=== PATIENT | male | born 1970 | race Caucasian/White ===

== ENCOUNTER 2022-01-15 13:38 | Inpatient (IN) | payer OTHER ==
[~2022-01-15] VITALS: Ht 182.9 cm; Wt 113.6 kg
[2022-01-15] VITALS (10 sets, daily range): BP systolic 132–150; BP diastolic 88–105
--- NOTE | 2022-01-15 13:58 | PDOC1 ---
History and Physical Date of Service: DOS: DATE: 01/15/22 TIME: 13:58 Chief Complaint: Chief Complain: Vomiting blood History of Present Illness: HPI: Patient is a 51-year-old male sent from [facility] today after he presented with some dark-colored stools on Tuesday of bright red blood hematemesis on . This has been ongoing ever since the start of symptoms. Did have an episode of hematemesis this morning and his significant other encouraged him to present to the outside emergency room. While there are due to concerns for GI bleed he was transferred down here. Patient does report having a GI bleed in 2018 that was eventually found to be caused by a stomach ulcer. Was on some sort of proton pump inhibitor after that. He also does endorse ongoing dysphagia. Since he stopped taking his proton pump inhibitors. Does endorse having a hiatal hernia. When I evaluated patient he was resting in bed complaining of abdominal pain feeling very tight. Past Medical/Surgical History: PMH/PSH: Vasectomy Allergies: Allergies: Coded Allergies: codeine (Verified Adverse Reaction, Mild, 01/15/22) lightheadedness Family History: Family History: Various cancers throughout family Social History: Social History: Will have a few cigarettes a day if at all. Denies drug use. Daily alcohol use to the equivalent of 12 beers or a fifth of hard liquor ROS: Review of Systems Review of System Unless noted in HPI 14 point review systems is negative Physical Exam: Physcial Exam: GEN: No apparent distress. Alert and oriented HEENT: Normal cephalic, atraumatic, external auditory canals are patent EYES: Extraocular muscles are intact, pupil are equally round and reactive to light and accommodation MUSCULOSKELETAL: Well developed , well nourished, good range of motion ENDOCRINE: No thyromegaly was palpated LYMPHATICS: No cervical chain or axillary nodes were noted HEMATOPOIETIC: No bruising NECK: Supple, no JVD, no thyromegaly was noted LUNGS: Clear to auscultation in all lung johns without rhonchi or wheezing HEART: RRR, S!, S2 present. Peripheral pulses intact, no obvious murmurs noted ABDOMEN: Noticeable distention, very tense feeling. Not particularly tender maybe some caput medusa EXTREMITIES: Without clubbing, cyanosis, or edema. Pedal pulses intact. Negative Homans sign NEUROLOGIC: Normal speech and tone. A&O x 3, moves all extremities, no obvious focal deficits PSYCHIATRIC: Normal affect, normal mood. Stable SKIN: No ulcerations or rashes, good skin turgor, no jaundice VASCULAR: Good capillary refill, neurovascular bundle appears to be intact Assessment/Plan Assessment/Plan Hematemesis, alcohol abuse, ascites, cirrhosis - 2-day history of bright red blood per rectum 1 day history hematemesis. Hemodynamically stable -Start IV Protonix. Make n.p.o. -GI consultation -Given severity of alcohol abuse will start CIWA protocol -Can perform paracentesis over weekend at bedside if deemed necessary -IR evaluation for TIPS -Home meds as indicated -hold off dvt ppx for now Justifications for Admission Other Justification SANDY KERN MD Jan 15, 2022 13:58
[2022-01-15] MEDS ORDERED: ONDANSETRON PF 4 MG/2 ML VIAL. IVP PRN (14:00)
[2022-01-15] MEDS ORDERED: ELECTROLYTE (NON-ICU) PROTOCOL. MC PRN (14:00)
[2022-01-15] MEDS ORDERED: MORPHINE SULFATE 2 MG/ML INJ. IV PRN (14:00)
[2022-01-15] MEDS ORDERED: CALCIUM CARBONATE 500 MG TAB.CHEW PO PRN (14:00)
--- NOTE | 2022-01-15 14:52 | PDOC2 ---
GI CONSULT Date of Service: DATE: 01/15/22 TIME: 14:36 Reason For Consult: GI bleed in alcoholic HPI: HPI: 51 y/o male sent from [facility]. First saw dark tarry stool on on Tue and first vomited red blood on morning. Last emesis (still bloody) occurred at 8:00 a.m. today before his girlfriend suggested they go to the ER, and last stool occurred today around 8:45 a.m. H/o GERD - previously on Rx medication, now OTC. Asked about dysphagia - he says he must take small bites because he has a hiatal hernia. No chronic issues w/ n/v. No diarrhea, constipation, or hematochezia. Previous GI bleeding in 2018 - reports EGD in [place], [place] showed stomach ulcer. Does not recall varices mentioned. No previous colonoscopy. No GB, liver, or pancreas history. Heavy alcohol use - last drink 01/13 at lunch. Has not eaten today. Outside records: WBC 10.5, Hgb 13, MCV 109, plt 235, BUN 17, Cr 0.6, bili 3.5, AST 84, ALT 33, Alk Phos 311, INR 1.1, amylase 24, troponin 0.01. On CT: diffuse low-density colonic-wall thickening - suspect portal hypertensive colopathy, small amount of high density material within dependent stomach (food vs blood), cirrhosis, and large volume ascites. PMH: PMH: HTN vasectomy, umbilical hernia repair w/ mesh, leg fracture repair w/ hardware FH: Family History: Cancer (esophgeal - father, also prostate and skin in other relatives), Other (GERD - father, mother, brother) Social History: Smoke: <1 pack per day ALCOHOL: heavy Drugs: None ROS: GEN: Denies fevers, chills, sweats HEENT: Denies blurred vision, sore throat CV: Denies chest pain RESP: Denies shortness of air, cough GI: Per HPI : Denies hematuria, dysuria ENDO: Denies weight changes NEURO: Denies confusion, dizziness MSK: Denies weakness, joint pain/swelling SKIN: Denies jaundice, pruritus Vitals: Vitals: Vital Signs Date Time Temp Pulse Resp B/P (MAP) Pulse Ox O2 Delivery O2 Flow Rate FiO2 01/15/22 13:59 98.7 101 20 136/105 (115) 100 Room Air 98.7 Labs: Labs: see HPI Allergies: Coded Allergies: codeine (Verified Adverse Reaction, Mild, 01/15/22) lightheadedness Imaging: Imaging: see HPI PE: GEN: NAD HEENT: Atraumatic, PERRL LUNGS: CTAB HEART: borderline tachycardic ABD: large - distended w/ ascites EXTREMITY: No edema SKIN: No rashes, no jaundice NEURO/PSYCH: A & O 3, very calm A/P: A/P: Hematemesis, melena - began 01/13/22 Macrocytosis, abnormal LFTs H/o GERD, PUD, and hiatal hernia CRC screen - none Cirrhosis, ascites Alcohol misuse FH esophageal cancer -- EGD this afternoon - have discussed w/ nursing supervisor customer services. Checking rapid COVID per protocol - called to floor. Agree w/ IV PPI, checking viral Hep panel, abd US, paracentesis. Withdrawal precautions per primary. LENARD HERNANDEZ Jan 15, 2022 14:52
[2022-01-15] MEDS: MULTIVIT INFUSN,ADULT 4,VIT K 10 ML, THIAMINE INJ 100 MG, FOLIC ACID INJ 1 MG in IV NOR... IV SCH (15:13)
[2022-01-15] MEDS: cefTRIAXone IV Push 1 GM VIAL. IVP SCH ×2 (15:13→17:35)
[2022-01-15] MEDS ORDERED: PANTOPRAZOLE IV PUSH 40 MG VIAL. IVP SCH (15:30)
[2022-01-15] MEDS ORDERED: IV NORMAL SALINE 1000ML BAG 1,000 ML IV SCH (15:30)
[2022-01-15] MEDS ORDERED: PROPOFOL 10 MG/ML (20ML) VIAL. IV ONE (15:56)
[2022-01-15] MEDS ORDERED: LIDOCAINE 2% PF 5 ML VIAL. ONE (15:57)
--- NOTE | 2022-01-15 16:22 | PDOC4 ---
PROCEDURE Procedure EGD Indication: UGI bleeding, subacute Meds: per anesthesia. Findings: E--No real varices; some small prominent veins but can flatten with air insufflation. Erosion distally from GERD. No apparent Malllory-Serra lesion. G--Small HH, but within what seemed to be gastric varix with a red spot. Not treatable by banding or injection here. Most of greater curve obscured by blood/clot. Distally normal lesser curve, antrum and pylorus. D--Normal to second portion; no blood here. Anastasiya. well. IMP: GERD HH Gastric varix with stigmata of recent hemorrhage. Not endoscopically treatable here. REC: Continue PPI drip. Add octreotide. Would have IR see re: possiblity of TIPS or BRTTO. NPO save ice chips. Monitor hemoglobin, INR, etc. Transfuse prn. BRYNN HERNANDEZ MD Jan 15, 2022 16:22
[2022-01-15] MEDS: OCTREOTIDE 500 MCG in IV NORMAL SALINE 100ML 100 ML IV PRN (17:36)
[2022-01-15] MEDS: PANTOPRAZOLE SODIUM IV DRIP 80 MG in IV NORMAL SALINE 100ML 100 ML IV SCH (17:37)
[2022-01-15] MEDS ORDERED: PHENOL ORAL SPRAY 177ML BOTTLE. PO PRN (21:00)
[2022-01-15] MEDS ORDERED: BENZOCAINE/MENTHOL LOZENGE. PO PRN (21:00)
[2022-01-15] MEDS: SENNOSIDES/DOCUSATE 8.6/50MG TABLET. PO SCH (21:00)
[2022-01-15 22:39] LABS: BILIRUBIN,URINE SMALL (NEG); CLARITY,URINE CLEAR; COLOR,URINE YELLOW; PROTEIN,URINE NEGATIVE (NEG-TRACE)
[2022-01-15 22:40] LABS: BACTERIA,URINE 0 /HPF (0-FEW); NITRITE,URINE NEGATIVE (NEG); RBC,URINE 0 /HPF (0-2); WBC,URINE 0 /HPF (0-4)
[2022-01-15 23:01] LABS: BASO # 0.1 x10^3/uL (0.0-0.2); BASO % 1 % (0-3); EOS % 0 % (0-3); HEMATOCRIT 30.8 % (39.0-53.0); HEMOGLOBIN 10.2 g/dL (13.0-17.5); LYMPH % 14 % (24-48); MEAN CORPUSCULAR HEMOGLOBIN 36 pg (25-35); MEAN CORPUSCULAR HGB CONC 33 g/dL (31-37); MEAN CORPUSCULAR VOLUME 110 fL (79-100); MONO # 0.7 x10^3/uL (0.0-1.1); MONO % 9 % (0-9); NEUT # 5.3 x10^3/uL (1.8-7.7); NEUT % 76 % (31-73); PLATELET COUNT 191 x10^3/uL (140-400); RED CELL DISTRIBUTION WIDTH 14.4 % (11.5-14.5); WHITE BLOOD COUNT 7.1 x10^3/uL (4.0-11.0)
[2022-01-15 23:11] LABS: PROTHROMBIN TIME PATIENT 14.9 SEC (11.7-14.0)
[2022-01-15 23:25] LABS: ALBUMIN 2.4 g/dL (3.4-5.0); ALBUMIN/GLOBULIN RATIO 0.5 (1.0-1.7); CALCIUM 8.3 mg/dL (8.5-10.1); CREATININE 0.9 mg/dL (0.7-1.3); POTASSIUM 3.4 mmol/L (3.5-5.1); TOTAL BILIRUBIN 2.7 mg/dL (0.2-1.0); TOTAL PROTEIN 7.1 g/dL (6.4-8.2)
--- NOTE | 2022-01-15 23:37 | RAD ---
EXAM: ULTRASOUND ABDOMEN LIMITED CLINICAL HISTORY: Right upper quadrant pain, GI bleeding COMPARISON: No prior Findings: The pancreas, aorta and most of the IVC are not visualized bowel gas shadowing. There is free fluid in the right upper quadrant. Gallbladder sludge and tiny gravel-type stones. Gallbladder wall thickening measuring 4.4 mm. No sono graphic Richard sign. Liver cirrhosis with surface irregularity and heterogeneous increased liver echotexture. No liver mas s documented. Hepatomegaly 18.8 cm which is abnormally elongated. Normal length is less than 16 cm. T here is patent hepatopetal portal vein blood flow. No intrahepatic biliary ductal dilation evident. T he common bile duct obscured by bowel gas shadowing. Right renal length 13.6 cm. No mass or hydronephrosis of the right kidney evident. Spleen and left kidney were not evaluated. IMPRESSION: 1. Ascites at the right upper quadrant abdomen. 2. Liver cirrhosis. 3. Gallbladder sludge and tiny gravel-type calculi. The gallbladder wall is mildly thickened measurin g 4.4 mm, which can be commonly observed in the setting of ascites and liver disease. Inflammatory th ickening from cholecystitis would also be a possibility. Electronically signed by: Roney Wright MD (01/15/2022 11:34 PM) [facility]
[2022-01-15 23:43] LABS: PLT ESTIMATE ADEQUATE (ADEQUATE)
[2022-01-16] MEDS: PANTOPRAZOLE SODIUM IV DRIP 80 MG in IV NORMAL SALINE 100ML 100 ML IV SCH ×3 (01:28→23:09)
[2022-01-16] MEDS: OCTREOTIDE 500 MCG in IV NORMAL SALINE 100ML 100 ML IV PRN ×2 (01:31→23:10)
[2022-01-16 02:19] VITALS: BP 136/94
[2022-01-16 02:57] LABS: HEMATOCRIT 27.2 % (39.0-53.0); RED BLOOD COUNT 2.46 x10^6/uL (4.30-5.70); RED CELL DISTRIBUTION WIDTH 14.4 % (11.5-14.5); WHITE BLOOD COUNT 6.1 x10^3/uL (4.0-11.0)
[2022-01-16 03:07] LABS: CREATININE 0.8 mg/dL (0.7-1.3); GFR 101.9; POTASSIUM 3.5 mmol/L (3.5-5.1)
[2022-01-16 07:00] VITALS: BP 130/88
[2022-01-16 07:29] LABS: PROTHROMBIN TIME PATIENT 15.4 SEC (11.7-14.0)
[2022-01-16] MEDS: MULTIVIT INFUSN,ADULT 4,VIT K 10 ML, THIAMINE INJ 100 MG, FOLIC ACID INJ 1 MG in IV NOR... IV SCH (08:29)
[2022-01-16] MEDS: SENNOSIDES/DOCUSATE 8.6/50MG TABLET. PO SCH ×2 (08:29→19:35)
--- NOTE | 2022-01-16 10:08 | PDOC ---
G I PROGRESS NOTE Reason for Follow-up Acute blood loss anemia Subjective Tolerating PO without further bleeding Physical Exam Lungs clear CV S1 S2 ABD +BS, soft, nontender Review of Relevant I have reviewed the following items emily (where applicable) has been applied. Labs Laboratory Tests Test 01/15/22 15:40 01/15/22 21:57 01/15/22 22:30 01/16/22 02:40 POC SARS CoV-2 Antigen Negative (NEGATIVE) Urine Collection Type Unknown Urine Color Yellow Urine Clarity Clear Urine pH 6.0 (<5.0-8.0) Urine Specific [place] 1.010 (1.000-1.030) Urine Protein Negative mg/dL (NEG-TRACE) Urine Glucose (UA) Negative mg/dL (NEG) Urine Ketones (Stick) Negative mg/dL (NEG) Urine Blood Negative (NEG) Urine Nitrite Negative (NEG) Urine Bilirubin Small (NEG) Urine Urobilinogen Dipstick 1.0 mg/dL (0.2 mg/dL) Urine Leukocyte Esterase Negative (NEG) Urine RBC 0 /HPF (0-2) Urine WBC 0 /HPF (0-4) Urine Squamous Epithelial Cells Occ /LPF Urine Bacteria 0 /HPF (0-FEW) White Blood Count 7.1 x10^3/uL (4.0-11.0) 6.1 x10^3/uL (4.0-11.0) Red Blood Count 2.80 x10^6/uL (4.30-5.70) 2.46 x10^6/uL (4.30-5.70) Hemoglobin 10.2 g/dL (13.0-17.5) 9.0 g/dL (13.0-17.5) Hematocrit 30.8 % (39.0-53.0) 27.2 % (39.0-53.0) Mean Corpuscular Volume 110 fL (79-100) 110 fL (79-100) Mean Corpuscular Hemoglobin 36 pg (25-35) 37 pg (25-35) Mean Corpuscular Hemoglobin Concent 33 g/dL (31-37) 33 g/dL (31-37) Red Cell Distribution Width 14.4 % (11.5-14.5) 14.4 % (11.5-14.5) Platelet Count 191 x10^3/uL (140-400) 148 x10^3/uL (140-400) Neutrophils (%) (Auto) 76 % (31-73) Lymphocytes (%) (Auto) 14 % (24-48) Monocytes (%) (Auto) 9 % (0-9) Eosinophils (%) (Auto) 0 % (0-3) Basophils (%) (Auto) 1 % (0-3) Neutrophils # (Auto) 5.3 x10^3/uL (1.8-7.7) Lymphocytes # (Auto) 1.0 x10^3/uL (1.0-4.8) Monocytes # (Auto) 0.7 x10^3/uL (0.0-1.1) Eosinophils # (Auto) 0.0 x10^3/uL (0.0-0.7) Basophils # (Auto) 0.1 x10^3/uL (0.0-0.2) Platelet Estimate Adequate (ADEQUATE) Macrocytosis Mod Prothrombin Time 14.9 SEC (11.7-14.0) Prothromb Time International Ratio 1.2 (0.8-1.1) Activated Partial Thromboplast Time 30 SEC (24-38) Sodium Level 142 mmol/L (136-145) 145 mmol/L (136-145) Potassium Level 3.4 mmol/L (3.5-5.1) 3.5 mmol/L (3.5-5.1) Chloride Level 106 mmol/L (98-107) 109 mmol/L (98-107) Carbon Dioxide Level 26 mmol/L (21-32) 26 mmol/L (21-32) Anion Gap 10 (6-14) 10 (6-14) Blood Urea Nitrogen 19 mg/dL (8-26) 19 mg/dL (8-26) Creatinine 0.9 mg/dL (0.7-1.3) 0.8 mg/dL (0.7-1.3) Estimated GFR (Cockcroft-Gault) 89.0 101.9 BUN/Creatinine Ratio 21 (6-20) Glucose Level 133 mg/dL (70-99) 156 mg/dL (70-99) Lactic Acid Level 2.6 mmol/L (0.4-2.0) 1.8 mmol/L (0.4-2.0) Calcium Level 8.3 mg/dL (8.5-10.1) 8.0 mg/dL (8.5-10.1) Iron Level 181 ug/dL (65-175) Total Iron Binding Capacity 174 ug/dL (250-450) Iron Saturation % (15-34) Total Bilirubin 2.7 mg/dL (0.2-1.0) Aspartate Amino Transf (AST/SGOT) 67 U/L (15-37) Alanine Aminotransferase (ALT/SGPT) 30 U/L (16-63) Alkaline Phosphatase 298 U/L (46-116) Ammonia 52 mcmol/L (11-34) Total Protein 7.1 g/dL (6.4-8.2) Albumin 2.4 g/dL (3.4-5.0) Albumin/Globulin Ratio 0.5 (1.0-1.7) Lipase 31 U/L (73-393) Thyroid Stimulating Hormone (TSH) 1.920 uIU/mL (0.358-3.74) Hepatitis A IgM Antibody Nonreactive (Nonreactive) Hepatitis B Surface Antigen Nonreactive (Nonreactive) Hepatitis B Core IgM Antibody Nonreactive (Nonreactive) Hepatitis C IgG Antibody Nonreactive (Nonreactive) Test 01/16/22 06:40 Prothrombin Time 15.4 SEC (11.7-14.0) Prothromb Time International Ratio 1.3 (0.8-1.1) Laboratory Tests Test 01/15/22 15:40 01/15/22 21:57 01/15/22 22:30 01/16/22 02:40 POC SARS CoV-2 Antigen Negative (NEGATIVE) Urine Collection Type Unknown Urine Color Yellow Urine Clarity Clear Urine pH 6.0 (<5.0-8.0) Urine Specific [place] 1.010 (1.000-1.030) Urine Protein Negative mg/dL (NEG-TRACE) Urine Glucose (UA) Negative mg/dL (NEG) Urine Ketones (Stick) Negative mg/dL (NEG) Urine Blood Negative (NEG) Urine Nitrite Negative (NEG) Urine Bilirubin Small (NEG) Urine Urobilinogen Dipstick 1.0 mg/dL (0.2 mg/dL) Urine Leukocyte Esterase Negative (NEG) Urine RBC 0 /HPF (0-2) Urine WBC 0 /HPF (0-4) Urine Squamous Epithelial Cells Occ /LPF Urine Bacteria 0 /HPF (0-FEW) White Blood Count 7.1 x10^3/uL (4.0-11.0) 6.1 x10^3/uL (4.0-11.0) Red Blood Count 2.80 x10^6/uL (4.30-5.70) 2.46 x10^6/uL (4.30-5.70) Hemoglobin 10.2 g/dL (13.0-17.5) 9.0 g/dL (13.0-17.5) Hematocrit 30.8 % (39.0-53.0) 27.2 % (39.0-53.0) Mean Corpuscular Volume 110 fL (79-100) 110 fL (79-100) Mean Corpuscular Hemoglobin 36 pg (25-35) 37 pg (25-35) Mean Corpuscular Hemoglobin Concent 33 g/dL (31-37) 33 g/dL (31-37) Red Cell Distribution Width 14.4 % (11.5-14.5) 14.4 % (11.5-14.5) Platelet Count 191 x10^3/uL (140-400) 148 x10^3/uL (140-400) Neutrophils (%) (Auto) 76 % (31-73) Lymphocytes (%) (Auto) 14 % (24-48) Monocytes (%) (Auto) 9 % (0-9) Eosinophils (%) (Auto) 0 % (0-3) Basophils (%) (Auto) 1 % (0-3) Neutrophils # (Auto) 5.3 x10^3/uL (1.8-7.7) Lymphocytes # (Auto) 1.0 x10^3/uL (1.0-4.8) Monocytes # (Auto) 0.7 x10^3/uL (0.0-1.1) Eosinophils # (Auto) 0.0 x10^3/uL (0.0-0.7) Basophils # (Auto) 0.1 x10^3/uL (0.0-0.2) Platelet Estimate Adequate (ADEQUATE) Macrocytosis Mod Prothrombin Time 14.9 SEC (11.7-14.0) Prothromb Time International Ratio 1.2 (0.8-1.1) Activated Partial Thromboplast Time 30 SEC (24-38) Sodium Level 142 mmol/L (136-145) 145 mmol/L (136-145) Potassium Level 3.4 mmol/L (3.5-5.1) 3.5 mmol/L (3.5-5.1) Chloride Level 106 mmol/L (98-107) 109 mmol/L (98-107) Carbon Dioxide Level 26 mmol/L (21-32) 26 mmol/L (21-32) Anion Gap 10 (6-14) 10 (6-14) Blood Urea Nitrogen 19 mg/dL (8-26) 19 mg/dL (8-26) Creatinine 0.9 mg/dL (0.7-1.3) 0.8 mg/dL (0.7-1.3) Estimated GFR (Cockcroft-Gault) 89.0 101.9 BUN/Creatinine Ratio 21 (6-20) Glucose Level 133 mg/dL (70-99) 156 mg/dL (70-99) Lactic Acid Level 2.6 mmol/L (0.4-2.0) 1.8 mmol/L (0.4-2.0) Calcium Level 8.3 mg/dL (8.5-10.1) 8.0 mg/dL (8.5-10.1) Iron Level 181 ug/dL (65-175) Total Iron Binding Capacity 174 ug/dL (250-450) Iron Saturation % (15-34) Total Bilirubin 2.7 mg/dL (0.2-1.0) Aspartate Amino Transf (AST/SGOT) 67 U/L (15-37) Alanine Aminotransferase (ALT/SGPT) 30 U/L (16-63) Alkaline Phosphatase 298 U/L (46-116) Ammonia 52 mcmol/L (11-34) Total Protein 7.1 g/dL (6.4-8.2) Albumin 2.4 g/dL (3.4-5.0) Albumin/Globulin Ratio 0.5 (1.0-1.7) Lipase 31 U/L (73-393) Thyroid Stimulating Hormone (TSH) 1.920 uIU/mL (0.358-3.74) Hepatitis A IgM Antibody Nonreactive (Nonreactive) Hepatitis B Surface Antigen Nonreactive (Nonreactive) Hepatitis B Core IgM Antibody Nonreactive (Nonreactive) Hepatitis C IgG Antibody Nonreactive (Nonreactive) Test 01/16/22 06:40 Prothrombin Time 15.4 SEC (11.7-14.0) Prothromb Time International Ratio 1.3 (0.8-1.1) Medications Current Medications Pantoprazole Sodium (PROTONIX VIAL for IV PUSH) 40 mg DAILYAC IVP ; Start 01/15/22 at 15:30; Stop 01/15/22 at 16:40; Status DC Sodium Chloride 1,000 ml @ 100 mls/hr Q10H IV Last administered on 01/15/22at 15:13; Start 01/15/22 at 15:30; Stop 01/16/22 at 01:29; Status DC Ondansetron HCl (Zofran) 4 mg PRN Q6HRS PRN IVP NAUSEA/VOMITING Last administered on 01/15/22at 20:30; Start 01/15/22 at 14:00 Calcium Carbonate/ Glycine (Tums) 500 mg PRN Q3HRS PRN PO UPSET STOMACH; Start 01/15/22 at 14:00 Info (Non-Icu Electrolyte Protocol) 1 ea PRN DAILY PRN MC SEE COMMENTS; Start 01/15/22 at 14:00 Morphine Sulfate (Morphine Sulfate) 1 mg PRN Q1HR PRN IV PAIN; Start 01/15/22 at 14:00 Senna/Docusate Sodium (Senna Plus) 1 tab BID PO ; Start 01/15/22 at 21:00 Ceftriaxone Sodium (Rocephin) 1 gm Q24H IVP Last administered on 01/15/22at 17:35; Start 01/15/22 at 15:00 Multivitamins 10 ml/Thiamine HCl 100 mg/Folic Acid 1 mg/Sodium Chloride 1,011.2 ml @ 100 mls/ hr DAILY IV ; Start 01/15/22 at 15:30; Stop 01/19/22 at 19:07 Multivitamins (Thera M Plus) 1 tab DAILY PO ; Start 01/20/22 at 09:00 Folic Acid (Folic Acid) 1 mg DAILY PO ; Start 01/20/22 at 09:00 Thiamine Mononitrate (Vitamin B-1) 100 mg DAILY PO ; Start 01/20/22 at 09:00 Lorazepam (Ativan Inj) 2 mg PRN Q1HR PRN IV For CIWA 8-14; Start 01/15/22 at 14:00 Lorazepam (Ativan Inj) 4 mg PRN Q1HR PRN IV For CIWA 15 or greater; Start 01/15/22 at 14:00 Propofol (Diprivan) 200 mg STK-MED ONCE IV ; Start 01/15/22 at 15:56; Stop 01/15/22 at 15:57; Status DC Lidocaine HCl (Lidocaine Pf 2% Vial) 5 ml STK-MED ONCE .ROUTE ; Start 01/15/22 at 15:57; Stop 01/15/22 at 15:57; Status DC Pantoprazole Sodium 80 mg/ Sodium Chloride 100 ml @ 10 mls/hr Q10H IV Last administered on 01/16/22at 01:28; Start 01/15/22 at 17:00 Octreotide Acetate 500 mcg/ Sodium Chloride 101 ml @ 5.05 mls/hr CONT PRN IV SEE I/O RECORD Last administered on 01/16/22at 01:31; Start 01/15/22 at 17:00 Throat Lozenges (Cepacol Sore Throat Lozenge) 1 olinda PRN Q2HRS PRN PO SORE THROAT Last administered on 01/15/22at 21:47; Start 01/15/22 at 21:00 Phenol (Chloraseptic) 1 spray PRN Q2HR PRN PO SORE THROAT Last administered on 01/15/22at 21:46; Start 01/15/22 at 21:00 Vitals/I & O Vital Sign - Last 24 Hours 01/15/22 01/15/22 01/15/22 01/15/22 13:59 14:30 15:00 15:50 Temp 98.7 99.0 98.7 99.0 Pulse 101 103 105 Resp 20 20 20 B/P (MAP) 136/105 (115) 148/104 (119) Pulse Ox 100 95 98 O2 Delivery Room Air Room Air Room Air Nasal Cannula O2 Flow Rate 4.0 01/15/22 01/15/22 01/15/22 01/15/22 16:15 16:30 16:45 17:15 Temp 98.7 98.7 97.8 98.5 98.7 98.7 97.8 98.5 Pulse 85 85 88 91 Resp 20 20 20 18 B/P (MAP) 121/79 129/87 128/79 149/96 (113) Pulse Ox 100 100 99 99 O2 Delivery Nasal Cannula Room Air Room Air Room Air O2 Flow Rate 3.0 01/15/22 01/15/22 01/15/22 01/15/22 17:30 17:45 18:00 18:15 Pulse 100 95 94 90 Resp 20 18 B/P (MAP) 148/96 (113) 149/93 (111) 145/95 (112) 150/94 (112) Pulse Ox 98 95 98 93 O2 Delivery Room Air Room Air Room Air Room Air 01/15/22 01/15/22 01/15/22 01/16/22 18:45 19:00 23:00 02:19 Temp 98.7 98.5 98.4 98.7 98.5 98.4 Pulse 91 95 90 83 Resp 20 18 16 B/P (MAP) 138/92 (107) 144/91 (108) 132/88 (103) 136/94 (108) Pulse Ox 94 98 94 96 O2 Delivery Room Air Room Air Room Air Room Air 01/16/22 01/16/22 07:00 08:05 Temp 98.1 98.1 Pulse 84 Resp 18 B/P (MAP) 130/88 (102) Pulse Ox 99 O2 Delivery Room Air Room Air Intake and Output 01/15/22 01/15/22 01/16/22 15:00 23:00 07:00 Intake Total 1493 ml Output Total 200 ml Balance -200 ml 1493 ml Problem List Acute blood loss anemia- with underlying liver disease, possible TIPS if further bleeding, advance diet and reassess in am Justicifation of Admission Dx: Justifications for Admission: Justification of Admission Dx: Yes KASHIF MAY MD Jan 16, 2022 10:08
[2022-01-16 11:00] VITALS: BP 142/98
--- NOTE | 2022-01-16 11:10 | PDOC ---
[employer] PROGRESS NOTE Date of Service DOS: DATE: 01/16/22 TIME: 11:07 Chief Complaint Chief Complaint Assessment/Plan Hematemesis, alcohol abuse, ascites, cirrhosis status post EGD revealing gastric varices with red spot and hiatal hernia Advance diet as tolerated - 2-day history of bright red blood per rectum 1 day history hematemesis. Hemodynamically stable -Continue IV octreotide drip and PPI. -GI consultation -Given severity of alcohol abuse will start CIWA protocol -Can perform paracentesis over weekend at bedside if deemed necessary -IR evaluation for TIPS -Home meds as indicated -hold off dvt ppx for now History of Present Illness History of Present Illness 51-year-old male sent from [facility] today after he presented with some dark- colored stools on Tuesday of bright red blood hematemesis on . This has been ongoing ever since the start of symptoms. Did have an episode of h ematemesis this morning and his significant other encouraged him to present to the outside emergency room. While there are due to concerns for GI bleed he was transferred down here. Patient does report having a GI bleed in 2018 that was eventually found to be caused by a stomach ulcer. Was on some sort of proton pump inhibitor after that. He also does endorse ongoing dysphagia. Since he stopped taking his proton pump inhibitors. Does endorse having a hiatal hernia. When I evaluated patient he was resting in bed complaining of abdominal pain feeling very tight. 01/16/22 No acute events overnight. Patient seen examined bedside. Status post EGD showing varices. IR consulted for possible TIPS versus BRTTO. Will trend hemoglobin at this time. Hemoglobin today at 9.0 advance diet per GI. Abdominal pain is improved. No more hematemesis. No signs of withdrawal. Patient's chart, labs, images were reviewed and discussed with RN Vitals/I&O Vitals/I&O: Vital Signs Date Time Temp Pulse Resp B/P (MAP) Pulse Ox O2 Delivery O2 Flow Rate FiO2 01/16/22 08:05 Room Air 01/16/22 07:00 98.1 84 18 130/88 (102) 99 98.1 01/15/22 16:15 3.0 I & O 01/15/22 01/15/22 01/16/22 15:00 23:00 07:00 Intake Total 1493 ml Output Total 200 ml Balance -200 ml 1493 ml Physical Exam General: Alert, Oriented X3, Cooperative Heart: Regular rate Lungs: Clear Abdomen: Normal bowel sounds Extremities: No clubbing Skin: No rashes Labs Labs: Laboratory Tests Test 01/15/22 15:40 01/15/22 21:57 01/15/22 22:30 01/16/22 02:40 POC SARS CoV-2 Antigen Negative (NEGATIVE) Urine Collection Type Unknown Urine Color Yellow Urine Clarity Clear Urine pH 6.0 (<5.0-8.0) Urine Specific [place] 1.010 (1.000-1.030) Urine Protein Negative mg/dL (NEG-TRACE) Urine Glucose (UA) Negative mg/dL (NEG) Urine Ketones (Stick) Negative mg/dL (NEG) Urine Blood Negative (NEG) Urine Nitrite Negative (NEG) Urine Bilirubin Small (NEG) Urine Urobilinogen Dipstick 1.0 mg/dL (0.2 mg/dL) Urine Leukocyte Esterase Negative (NEG) Urine RBC 0 /HPF (0-2) Urine WBC 0 /HPF (0-4) Urine Squamous Epithelial Cells Occ /LPF Urine Bacteria 0 /HPF (0-FEW) White Blood Count 7.1 x10^3/uL (4.0-11.0) 6.1 x10^3/uL (4.0-11.0) Red Blood Count 2.80 x10^6/uL (4.30-5.70) 2.46 x10^6/uL (4.30-5.70) Hemoglobin 10.2 g/dL (13.0-17.5) 9.0 g/dL (13.0-17.5) Hematocrit 30.8 % (39.0-53.0) 27.2 % (39.0-53.0) Mean Corpuscular Volume 110 fL (79-100) 110 fL (79-100) Mean Corpuscular Hemoglobin 36 pg (25-35) 37 pg (25-35) Mean Corpuscular Hemoglobin Concent 33 g/dL (31-37) 33 g/dL (31-37) Red Cell Distribution Width 14.4 % (11.5-14.5) 14.4 % (11.5-14.5) Platelet Count 191 x10^3/uL (140-400) 148 x10^3/uL (140-400) Neutrophils (%) (Auto) 76 % (31-73) Lymphocytes (%) (Auto) 14 % (24-48) Monocytes (%) (Auto) 9 % (0-9) Eosinophils (%) (Auto) 0 % (0-3) Basophils (%) (Auto) 1 % (0-3) Neutrophils # (Auto) 5.3 x10^3/uL (1.8-7.7) Lymphocytes # (Auto) 1.0 x10^3/uL (1.0-4.8) Monocytes # (Auto) 0.7 x10^3/uL (0.0-1.1) Eosinophils # (Auto) 0.0 x10^3/uL (0.0-0.7) Basophils # (Auto) 0.1 x10^3/uL (0.0-0.2) Platelet Estimate Adequate (ADEQUATE) Macrocytosis Mod Prothrombin Time 14.9 SEC (11.7-14.0) Prothromb Time International Ratio 1.2 (0.8-1.1) Activated Partial Thromboplast Time 30 SEC (24-38) Sodium Level 142 mmol/L (136-145) 145 mmol/L (136-145) Potassium Level 3.4 mmol/L (3.5-5.1) 3.5 mmol/L (3.5-5.1) Chloride Level 106 mmol/L (98-107) 109 mmol/L (98-107) Carbon Dioxide Level 26 mmol/L (21-32) 26 mmol/L (21-32) Anion Gap 10 (6-14) 10 (6-14) Blood Urea Nitrogen 19 mg/dL (8-26) 19 mg/dL (8-26) Creatinine 0.9 mg/dL (0.7-1.3) 0.8 mg/dL (0.7-1.3) Estimated GFR (Cockcroft-Gault) 89.0 101.9 BUN/Creatinine Ratio 21 (6-20) Glucose Level 133 mg/dL (70-99) 156 mg/dL (70-99) Lactic Acid Level 2.6 mmol/L (0.4-2.0) 1.8 mmol/L (0.4-2.0) Calcium Level 8.3 mg/dL (8.5-10.1) 8.0 mg/dL (8.5-10.1) Iron Level 181 ug/dL (65-175) Total Iron Binding Capacity 174 ug/dL (250-450) Iron Saturation % (15-34) Total Bilirubin 2.7 mg/dL (0.2-1.0) Aspartate Amino Transf (AST/SGOT) 67 U/L (15-37) Alanine Aminotransferase (ALT/SGPT) 30 U/L (16-63) Alkaline Phosphatase 298 U/L (46-116) Ammonia 52 mcmol/L (11-34) Total Protein 7.1 g/dL (6.4-8.2) Albumin 2.4 g/dL (3.4-5.0) Albumin/Globulin Ratio 0.5 (1.0-1.7) Lipase 31 U/L (73-393) Thyroid Stimulating Hormone (TSH) 1.920 uIU/mL (0.358-3.74) Hepatitis A IgM Antibody Nonreactive (Nonreactive) Hepatitis B Surface Antigen Nonreactive (Nonreactive) Hepatitis B Core IgM Antibody Nonreactive (Nonreactive) Hepatitis C IgG Antibody Nonreactive (Nonreactive) Test 01/16/22 06:40 Prothrombin Time 15.4 SEC (11.7-14.0) Prothromb Time International Ratio 1.3 (0.8-1.1) Comment Review of Relevant I have reviewed the following items emily (where applicable) has been applied. Medications: Current Medications Medications (Trade) Dose Ordered Sig/Nadeen Route PRN Reason Start Time Stop Time Status Last Admin Dose Admin Sodium Chloride 1,000 ml @ 100 mls/hr Q10H IV 01/15/22 15:30 01/16/22 01:29 DC 01/15/22 15:13 Ondansetron HCl (Zofran) 4 mg PRN Q6HRS PRN IVP NAUSEA/VOMITING 01/15/22 14:00 01/15/22 20:30 Ceftriaxone Sodium (Rocephin) 1 gm Q24H IVP 01/15/22 15:00 01/15/22 17:35 Pantoprazole Sodium 80 mg/ Sodium Chloride 100 ml @ 10 mls/hr Q10H IV 01/15/22 17:00 01/16/22 01:28 Octreotide Acetate 500 mcg/ Sodium Chloride 101 ml @ 5.05 mls/hr CONT PRN IV SEE I/O RECORD 01/15/22 17:00 01/16/22 01:31 Throat Lozenges (Cepacol Sore Throat Lozenge) 1 olinda PRN Q2HRS PRN PO SORE THROAT 01/15/22 21:00 01/15/22 21:47 Phenol (Chloraseptic) 1 spray PRN Q2HR PRN PO SORE THROAT 01/15/22 21:00 01/15/22 21:46 Justifications for Admission Other Justification DELMY LOMAS MD Jan 16, 2022 11:10
[2022-01-16 15:00] VITALS: BP 153/100
[2022-01-16] MEDS: cefTRIAXone IV Push 1 GM VIAL. IVP SCH (15:36)
[2022-01-16 19:00] VITALS: BP 138/69
[2022-01-16] MEDS: ZOLPIDEM 5 MG TABLET. PO PRN (20:44)
[2022-01-16 23:00] VITALS: BP 135/72
[2022-01-17 02:37] VITALS: BP 130/89
[2022-01-17 07:00] VITALS: BP 131/88
[2022-01-17 07:25] LABS: BASO # 0.1 x10^3/uL (0.0-0.2); BASO % 1 % (0-3); EOS # 0.1 x10^3/uL (0.0-0.7); EOS % 2 % (0-3); HEMATOCRIT 25.5 % (39.0-53.0); HEMOGLOBIN 8.6 g/dL (13.0-17.5); LYMPH # 1.2 x10^3/uL (1.0-4.8); LYMPH % 19 % (24-48); MEAN CORPUSCULAR HEMOGLOBIN 37 pg (25-35); MEAN CORPUSCULAR HGB CONC 34 g/dL (31-37); MEAN CORPUSCULAR VOLUME 110 fL (79-100); MONO # 0.6 x10^3/uL (0.0-1.1); MONO % 9 % (0-9); NEUT # 4.5 x10^3/uL (1.8-7.7); NEUT % 69 % (31-73); PLATELET COUNT 135 x10^3/uL (140-400); RED BLOOD COUNT 2.31 x10^6/uL (4.30-5.70); RED CELL DISTRIBUTION WIDTH 14.2 % (11.5-14.5); WHITE BLOOD COUNT 6.6 x10^3/uL (4.0-11.0)
[2022-01-17 07:42] LABS: CALCIUM 7.6 mg/dL (8.5-10.1); CREATININE 0.8 mg/dL (0.7-1.3); GFR 101.9; MAGNESIUM 1.6 mg/dL (1.8-2.4); PHOSPHORUS 3.1 mg/dL (2.6-4.7); POTASSIUM 3.1 mmol/L (3.5-5.1)
[2022-01-17] MEDS: THIAMINE 100 MG TABLET. PO SCH (08:35)
[2022-01-17] MEDS: FOLIC ACID 1 MG TABLET. PO SCH (08:35)
[2022-01-17] MEDS: MULTIVITAMIN with MINERAL TABLET. PO SCH (08:35)
[2022-01-17] MEDS: POTASSIUM CHLORIDE 20 MEQ TABLET.ER. PO SCH ×2 (08:36→20:41)
[2022-01-17] MEDS: SENNOSIDES/DOCUSATE 8.6/50MG TABLET. PO SCH ×2 (08:38→21:00)
[2022-01-17] MEDS ORDERED: MAGNESIUM SULFATE 2GM 50 ML IV ONE (09:00)
--- NOTE | 2022-01-17 09:45 | PDOC ---
[employer] PROGRESS NOTE Date of Service DOS: DATE: 01/17/22 TIME: 09:44 Chief Complaint Chief Complaint Assessment/Plan Hematemesis, alcohol abuse, ascites, cirrhosis status post EGD revealing gastric varices with red spot and hiatal hernia Advance diet as tolerated - 2-day history of bright red blood per rectum 1 day history hematemesis. Hemodynamically stable -Continue IV octreotide drip and PPI. -GI consultation -Given severity of alcohol abuse will start CIWA protocol -Can perform paracentesis over weekend at bedside if deemed necessary -IR evaluation for TIPS -Home meds as indicated -hold off dvt ppx for now History of Present Illness History of Present Illness 51-year-old male sent from [facility] today after he presented with some dark- colored stools on Tuesday of bright red blood hematemesis on . This has been ongoing ever since the start of symptoms. Did have an episode of h ematemesis this morning and his significant other encouraged him to present to the outside emergency room. While there are due to concerns for GI bleed he was transferred down here. Patient does report having a GI bleed in 2018 that was eventually found to be caused by a stomach ulcer. Was on some sort of proton pump inhibitor after that. He also does endorse ongoing dysphagia. Since he stopped taking his proton pump inhibitors. Does endorse having a hiatal hernia. When I evaluated patient he was resting in bed complaining of abdominal pain feeling very tight. 01/16/22 No acute events overnight. Patient seen examined bedside. Status post EGD showing varices. IR consulted for possible TIPS versus BRTTO. Will trend hemoglobin at this time. Hemoglobin today at 9.0 advance diet per GI. Abdominal pain is improved. No more hematemesis. No signs of withdrawal. Patient's chart, labs, images were reviewed and discussed with RN 01/17/2022 No acute events overnight. Patient seen examined bedside. No more hematemesis. Tolerating diet. Will DC Protonix drip and continue with IV Protonix twice daily. Pending IR evaluation. Hemoglobin trending downwards to 8.6. We will continue to observe. Patient's chart, labs, images were reviewed and discussed with RN Vitals/I&O Vitals/I&O: Vital Signs Date Time Temp Pulse Resp B/P (MAP) Pulse Ox O2 Delivery O2 Flow Rate FiO2 01/17/22 08:05 Room Air 01/17/22 07:00 98.8 82 18 131/88 (102) 96 98.8 I & O 01/16/22 01/16/22 01/17/22 15:00 23:00 07:00 Intake Total 320 ml 400 ml Balance 320 ml 400 ml Physical Exam General: Alert, Oriented X3, Cooperative Heart: Regular rate Lungs: Clear Abdomen: Normal bowel sounds Extremities: No clubbing Skin: No rashes Labs Labs: Laboratory Tests Test 01/17/22 06:10 White Blood Count 6.6 x10^3/uL (4.0-11.0) Red Blood Count 2.31 x10^6/uL (4.30-5.70) Hemoglobin 8.6 g/dL (13.0-17.5) Hematocrit 25.5 % (39.0-53.0) Mean Corpuscular Volume 110 fL (79-100) Mean Corpuscular Hemoglobin 37 pg (25-35) Mean Corpuscular Hemoglobin Concent 34 g/dL (31-37) Red Cell Distribution Width 14.2 % (11.5-14.5) Platelet Count 135 x10^3/uL (140-400) Neutrophils (%) (Auto) 69 % (31-73) Lymphocytes (%) (Auto) 19 % (24-48) Monocytes (%) (Auto) 9 % (0-9) Eosinophils (%) (Auto) 2 % (0-3) Basophils (%) (Auto) 1 % (0-3) Neutrophils # (Auto) 4.5 x10^3/uL (1.8-7.7) Lymphocytes # (Auto) 1.2 x10^3/uL (1.0-4.8) Monocytes # (Auto) 0.6 x10^3/uL (0.0-1.1) Eosinophils # (Auto) 0.1 x10^3/uL (0.0-0.7) Basophils # (Auto) 0.1 x10^3/uL (0.0-0.2) Sodium Level 141 mmol/L (136-145) Potassium Level 3.1 mmol/L (3.5-5.1) Chloride Level 108 mmol/L (98-107) Carbon Dioxide Level 25 mmol/L (21-32) Anion Gap 8 (6-14) Blood Urea Nitrogen 9 mg/dL (8-26) Creatinine 0.8 mg/dL (0.7-1.3) Estimated GFR (Cockcroft-Gault) 101.9 Glucose Level 100 mg/dL (70-99) Calcium Level 7.6 mg/dL (8.5-10.1) Phosphorus Level 3.1 mg/dL (2.6-4.7) Magnesium Level 1.6 mg/dL (1.8-2.4) Comment Review of Relevant I have reviewed the following items emily (where applicable) has been applied. Medications: Current Medications Medications (Trade) Dose Ordered Sig/Nadeen Route PRN Reason Start Time Stop Time Status Last Admin Dose Admin Thiamine Mononitrate (Vitamin B-1) 300 mg DAILY PO 01/17/22 09:00 01/17/22 08:35 Folic Acid (Folic Acid) 1 mg DAILY PO 01/17/22 09:00 01/17/22 08:35 Multivitamins (Thera M Plus) 1 tab DAILY PO 01/17/22 09:00 01/17/22 08:35 Zolpidem Tartrate (Ambien) 2.5 mg PRN QHS PRN PO INSOMNIA 01/16/22 12:30 01/16/22 20:44 Potassium Chloride (Klor-Con) 40 meq BID PO 01/17/22 09:00 01/18/22 08:59 01/17/22 08:36 Justifications for Admission Other Justification DELMY LOMAS MD Jan 17, 2022 09:45
[2022-01-17 11:00] VITALS: BP 140/98
--- NOTE | 2022-01-17 12:27 | PDOC ---
G I PROGRESS NOTE Reason for Follow-up Acute blood loss anemia Subjective No further bleeding/tolerating po Physical Exam Lungs clear CV S1 S2 ABD Distended, +BS Review of Relevant I have reviewed the following items emily (where applicable) has been applied. Labs Laboratory Tests Test 01/15/22 15:40 01/15/22 21:57 01/15/22 22:30 01/16/22 02:40 POC SARS CoV-2 Antigen Negative (NEGATIVE) Urine Collection Type Unknown Urine Color Yellow Urine Clarity Clear Urine pH 6.0 (<5.0-8.0) Urine Specific [place] 1.010 (1.000-1.030) Urine Protein Negative mg/dL (NEG-TRACE) Urine Glucose (UA) Negative mg/dL (NEG) Urine Ketones (Stick) Negative mg/dL (NEG) Urine Blood Negative (NEG) Urine Nitrite Negative (NEG) Urine Bilirubin Small (NEG) Urine Urobilinogen Dipstick 1.0 mg/dL (0.2 mg/dL) Urine Leukocyte Esterase Negative (NEG) Urine RBC 0 /HPF (0-2) Urine WBC 0 /HPF (0-4) Urine Squamous Epithelial Cells Occ /LPF Urine Bacteria 0 /HPF (0-FEW) White Blood Count 7.1 x10^3/uL (4.0-11.0) 6.1 x10^3/uL (4.0-11.0) Red Blood Count 2.80 x10^6/uL (4.30-5.70) 2.46 x10^6/uL (4.30-5.70) Hemoglobin 10.2 g/dL (13.0-17.5) 9.0 g/dL (13.0-17.5) Hematocrit 30.8 % (39.0-53.0) 27.2 % (39.0-53.0) Mean Corpuscular Volume 110 fL (79-100) 110 fL (79-100) Mean Corpuscular Hemoglobin 36 pg (25-35) 37 pg (25-35) Mean Corpuscular Hemoglobin Concent 33 g/dL (31-37) 33 g/dL (31-37) Red Cell Distribution Width 14.4 % (11.5-14.5) 14.4 % (11.5-14.5) Platelet Count 191 x10^3/uL (140-400) 148 x10^3/uL (140-400) Neutrophils (%) (Auto) 76 % (31-73) Lymphocytes (%) (Auto) 14 % (24-48) Monocytes (%) (Auto) 9 % (0-9) Eosinophils (%) (Auto) 0 % (0-3) Basophils (%) (Auto) 1 % (0-3) Neutrophils # (Auto) 5.3 x10^3/uL (1.8-7.7) Lymphocytes # (Auto) 1.0 x10^3/uL (1.0-4.8) Monocytes # (Auto) 0.7 x10^3/uL (0.0-1.1) Eosinophils # (Auto) 0.0 x10^3/uL (0.0-0.7) Basophils # (Auto) 0.1 x10^3/uL (0.0-0.2) Platelet Estimate Adequate (ADEQUATE) Macrocytosis Mod Prothrombin Time 14.9 SEC (11.7-14.0) Prothromb Time International Ratio 1.2 (0.8-1.1) Activated Partial Thromboplast Time 30 SEC (24-38) Sodium Level 142 mmol/L (136-145) 145 mmol/L (136-145) Potassium Level 3.4 mmol/L (3.5-5.1) 3.5 mmol/L (3.5-5.1) Chloride Level 106 mmol/L (98-107) 109 mmol/L (98-107) Carbon Dioxide Level 26 mmol/L (21-32) 26 mmol/L (21-32) Anion Gap 10 (6-14) 10 (6-14) Blood Urea Nitrogen 19 mg/dL (8-26) 19 mg/dL (8-26) Creatinine 0.9 mg/dL (0.7-1.3) 0.8 mg/dL (0.7-1.3) Estimated GFR (Cockcroft-Gault) 89.0 101.9 BUN/Creatinine Ratio 21 (6-20) Glucose Level 133 mg/dL (70-99) 156 mg/dL (70-99) Lactic Acid Level 2.6 mmol/L (0.4-2.0) 1.8 mmol/L (0.4-2.0) Calcium Level 8.3 mg/dL (8.5-10.1) 8.0 mg/dL (8.5-10.1) Iron Level 181 ug/dL (65-175) Total Iron Binding Capacity 174 ug/dL (250-450) Iron Saturation % (15-34) Total Bilirubin 2.7 mg/dL (0.2-1.0) Aspartate Amino Transf (AST/SGOT) 67 U/L (15-37) Alanine Aminotransferase (ALT/SGPT) 30 U/L (16-63) Alkaline Phosphatase 298 U/L (46-116) Ammonia 52 mcmol/L (11-34) Total Protein 7.1 g/dL (6.4-8.2) Albumin 2.4 g/dL (3.4-5.0) Albumin/Globulin Ratio 0.5 (1.0-1.7) Lipase 31 U/L (73-393) Thyroid Stimulating Hormone (TSH) 1.920 uIU/mL (0.358-3.74) Hepatitis A IgM Antibody Nonreactive (Nonreactive) Hepatitis B Surface Antigen Nonreactive (Nonreactive) Hepatitis B Core IgM Antibody Nonreactive (Nonreactive) Hepatitis C IgG Antibody Nonreactive (Nonreactive) Test 01/16/22 06:40 01/17/22 06:10 Prothrombin Time 15.4 SEC (11.7-14.0) Prothromb Time International Ratio 1.3 (0.8-1.1) White Blood Count 6.6 x10^3/uL (4.0-11.0) Red Blood Count 2.31 x10^6/uL (4.30-5.70) Hemoglobin 8.6 g/dL (13.0-17.5) Hematocrit 25.5 % (39.0-53.0) Mean Corpuscular Volume 110 fL (79-100) Mean Corpuscular Hemoglobin 37 pg (25-35) Mean Corpuscular Hemoglobin Concent 34 g/dL (31-37) Red Cell Distribution Width 14.2 % (11.5-14.5) Platelet Count 135 x10^3/uL (140-400) Neutrophils (%) (Auto) 69 % (31-73) Lymphocytes (%) (Auto) 19 % (24-48) Monocytes (%) (Auto) 9 % (0-9) Eosinophils (%) (Auto) 2 % (0-3) Basophils (%) (Auto) 1 % (0-3) Neutrophils # (Auto) 4.5 x10^3/uL (1.8-7.7) Lymphocytes # (Auto) 1.2 x10^3/uL (1.0-4.8) Monocytes # (Auto) 0.6 x10^3/uL (0.0-1.1) Eosinophils # (Auto) 0.1 x10^3/uL (0.0-0.7) Basophils # (Auto) 0.1 x10^3/uL (0.0-0.2) Sodium Level 141 mmol/L (136-145) Potassium Level 3.1 mmol/L (3.5-5.1) Chloride Level 108 mmol/L (98-107) Carbon Dioxide Level 25 mmol/L (21-32) Anion Gap 8 (6-14) Blood Urea Nitrogen 9 mg/dL (8-26) Creatinine 0.8 mg/dL (0.7-1.3) Estimated GFR (Cockcroft-Gault) 101.9 Glucose Level 100 mg/dL (70-99) Calcium Level 7.6 mg/dL (8.5-10.1) Phosphorus Level 3.1 mg/dL (2.6-4.7) Magnesium Level 1.6 mg/dL (1.8-2.4) Laboratory Tests Test 01/17/22 06:10 White Blood Count 6.6 x10^3/uL (4.0-11.0) Red Blood Count 2.31 x10^6/uL (4.30-5.70) Hemoglobin 8.6 g/dL (13.0-17.5) Hematocrit 25.5 % (39.0-53.0) Mean Corpuscular Volume 110 fL (79-100) Mean Corpuscular Hemoglobin 37 pg (25-35) Mean Corpuscular Hemoglobin Concent 34 g/dL (31-37) Red Cell Distribution Width 14.2 % (11.5-14.5) Platelet Count 135 x10^3/uL (140-400) Neutrophils (%) (Auto) 69 % (31-73) Lymphocytes (%) (Auto) 19 % (24-48) Monocytes (%) (Auto) 9 % (0-9) Eosinophils (%) (Auto) 2 % (0-3) Basophils (%) (Auto) 1 % (0-3) Neutrophils # (Auto) 4.5 x10^3/uL (1.8-7.7) Lymphocytes # (Auto) 1.2 x10^3/uL (1.0-4.8) Monocytes # (Auto) 0.6 x10^3/uL (0.0-1.1) Eosinophils # (Auto) 0.1 x10^3/uL (0.0-0.7) Basophils # (Auto) 0.1 x10^3/uL (0.0-0.2) Sodium Level 141 mmol/L (136-145) Potassium Level 3.1 mmol/L (3.5-5.1) Chloride Level 108 mmol/L (98-107) Carbon Dioxide Level 25 mmol/L (21-32) Anion Gap 8 (6-14) Blood Urea Nitrogen 9 mg/dL (8-26) Creatinine 0.8 mg/dL (0.7-1.3) Estimated GFR (Cockcroft-Gault) 101.9 Glucose Level 100 mg/dL (70-99) Calcium Level 7.6 mg/dL (8.5-10.1) Phosphorus Level 3.1 mg/dL (2.6-4.7) Magnesium Level 1.6 mg/dL (1.8-2.4) Medications Current Medications Pantoprazole Sodium (PROTONIX VIAL for IV PUSH) 40 mg DAILYAC IVP ; Start 01/15/22 at 15:30; Stop 01/15/22 at 16:40; Status DC Sodium Chloride 1,000 ml @ 100 mls/hr Q10H IV Last administered on 01/15/22at 15:13; Start 01/15/22 at 15:30; Stop 01/16/22 at 01:29; Status DC Ondansetron HCl (Zofran) 4 mg PRN Q6HRS PRN IVP NAUSEA/VOMITING Last administered on 01/15/22at 20:30; Start 01/15/22 at 14:00 Calcium Carbonate/ Glycine (Tums) 500 mg PRN Q3HRS PRN PO UPSET STOMACH; Start 01/15/22 at 14:00 Info (Non-Icu Electrolyte Protocol) 1 ea PRN DAILY PRN MC SEE COMMENTS; Start 01/15/22 at 14:00 Morphine Sulfate (Morphine Sulfate) 1 mg PRN Q1HR PRN IV PAIN; Start 01/15/22 at 14:00 Senna/Docusate Sodium (Senna Plus) 1 tab BID PO ; Start 01/15/22 at 21:00 Ceftriaxone Sodium (Rocephin) 1 gm Q24H IVP Last administered on 01/16/22at 15:36; Start 01/15/22 at 15:00 Multivitamins 10 ml/Thiamine HCl 100 mg/Folic Acid 1 mg/Sodium Chloride 1,011.2 ml @ 100 mls/ hr DAILY IV ; Start 01/15/22 at 15:30; Stop 01/16/22 at 12:25; Status DC Multivitamins (Thera M Plus) 1 tab DAILY PO ; Start 01/20/22 at 09:00; Stop 01/16/22 at 12:25; Status DC Folic Acid (Folic Acid) 1 mg DAILY PO ; Start 01/20/22 at 09:00; Stop 01/16/22 at 12:25; Status DC Thiamine Mononitrate (Vitamin B-1) 100 mg DAILY PO ; Start 01/20/22 at 09:00; Stop 01/16/22 at 12:26; Status DC Lorazepam (Ativan Inj) 2 mg PRN Q1HR PRN IV For CIWA 8-14 Last administered on 01/16/22at 20:45; Start 01/15/22 at 14:00 Lorazepam (Ativan Inj) 4 mg PRN Q1HR PRN IV For CIWA 15 or greater; Start 01/15/22 at 14:00 Propofol (Diprivan) 200 mg STK-MED ONCE IV ; Start 01/15/22 at 15:56; Stop 01/15/22 at 15:57; Status DC Lidocaine HCl (Lidocaine Pf 2% Vial) 5 ml STK-MED ONCE .ROUTE ; Start 01/15/22 at 15:57; Stop 01/15/22 at 15:57; Status DC Pantoprazole Sodium 80 mg/ Sodium Chloride 100 ml @ 10 mls/hr Q10H IV Last administered on 01/16/22at 23:09; Start 01/15/22 at 17:00; Stop 01/17/22 at 09:21; Status DC Octreotide Acetate 500 mcg/ Sodium Chloride 101 ml @ 5.05 mls/hr CONT PRN IV SEE I/O RECORD Last administered on 01/16/22at 23:10; Start 01/15/22 at 17:00 Throat Lozenges (Cepacol Sore Throat Lozenge) 1 olinda PRN Q2HRS PRN PO SORE THROAT Last administered on 01/15/22at 21:47; Start 01/15/22 at 21:00 Phenol (Chloraseptic) 1 spray PRN Q2HR PRN PO SORE THROAT Last administered on 01/15/22at 21:46; Start 01/15/22 at 21:00 Thiamine Mononitrate (Vitamin B-1) 300 mg DAILY PO Last administered on 01/17/22 08:35; Start 01/17/22 at 09:00 Folic Acid (Folic Acid) 1 mg DAILY PO Last administered on 01/17/22at 08:35; Start 01/17/22 at 09:00 Multivitamins (Thera M Plus) 1 tab DAILY PO Last administered on 01/17/22at 08:35; Start 01/17/22 at 09:00 Zolpidem Tartrate (Ambien) 2.5 mg PRN QHS PRN PO INSOMNIA Last administered on 01/16/22at 20:44; Start 01/16/22 at 12:30 Magnesium Sulfate 50 ml @ 25 mls/hr 1X ONCE IV Last administered on 01/17/22at 09:55; Start 01/17/22 at 09:00; Stop 01/17/22 at 10:59; Status DC Potassium Chloride (Klor-Con) 40 meq BID PO Last administered on 01/17/22at 08:36; Start 01/17/22 at 09:00; Stop 01/18/22 at 08:59 Pantoprazole Sodium (PROTONIX VIAL for IV PUSH) 40 mg BIDAC IVP ; Start 01/17/22 at 16:30 Vitals/I & O Vital Sign - Last 24 Hours 01/16/22 01/16/22 01/16/22 01/16/22 15:00 19:00 20:00 23:00 Temp 98.5 97.8 97.7 98.5 97.8 97.7 Pulse 82 88 80 Resp 18 18 17 B/P (MAP) 153/100 (117) 138/69 (92) 135/72 (93) Pulse Ox 99 98 98 O2 Delivery Room Air Room Air Room Air 01/17/22 01/17/22 01/17/22 01/17/22 02:37 07:00 08:05 11:00 Temp 97.7 98.8 98.1 97.7 98.8 98.1 Pulse 74 82 86 Resp 18 18 18 B/P (MAP) 130/89 (103) 131/88 (102) 140/98 (112) Pulse Ox 98 96 95 O2 Delivery Room Air Room Air Intake and Output 01/16/22 01/16/22 01/17/22 15:00 23:00 07:00 Intake Total 320 ml 400 ml Balance 320 ml 400 ml Problem List Acute blood loss anemia- with gastric varix, await paracentesis and possible TIPS evaluation in am with IR, Hg stable. Justicifation of Admission Dx: Justifications for Admission: Justification of Admission Dx: Yes KASHIF MAY MD Jan 17, 2022 12:27
[2022-01-17 15:00] VITALS: BP 141/94
[2022-01-17] MEDS: cefTRIAXone IV Push 1 GM VIAL. IVP SCH (15:38)
[2022-01-17] MEDS: PANTOPRAZOLE IV PUSH 40 MG VIAL. IVP SCH (16:53)
[2022-01-17] MEDS ORDERED: ACETAMINOPHEN 325 MG TABLET. PO PRN (17:00)
[2022-01-17 19:00] VITALS: BP 141/101
[2022-01-17] MEDS: OCTREOTIDE 500 MCG in IV NORMAL SALINE 100ML 100 ML IV PRN (19:03)
[2022-01-17] MEDS: ZOLPIDEM 5 MG TABLET. PO PRN (20:43)
[2022-01-17 23:00] VITALS: BP 124/76
[2022-01-18] VITALS (9 sets, daily range): BP systolic 122–154; BP diastolic 81–96
[2022-01-18 05:21] LABS: BASO # 0.1 x10^3/uL (0.0-0.2); BASO % 1 % (0-3); EOS # 0.2 x10^3/uL (0.0-0.7); EOS % 2 % (0-3); HEMATOCRIT 25.3 % (39.0-53.0); HEMOGLOBIN 8.7 g/dL (13.0-17.5); LYMPH # 1.2 x10^3/uL (1.0-4.8); LYMPH % 18 % (24-48); MEAN CORPUSCULAR HEMOGLOBIN 38 pg (25-35); MEAN CORPUSCULAR HGB CONC 34 g/dL (31-37); MEAN CORPUSCULAR VOLUME 109 fL (79-100); MONO # 0.6 x10^3/uL (0.0-1.1); MONO % 9 % (0-9); NEUT # 4.8 x10^3/uL (1.8-7.7); NEUT % 70 % (31-73); PLATELET COUNT 142 x10^3/uL (140-400); RED BLOOD COUNT 2.32 x10^6/uL (4.30-5.70); RED CELL DISTRIBUTION WIDTH 13.6 % (11.5-14.5); WHITE BLOOD COUNT 6.9 x10^3/uL (4.0-11.0)
[2022-01-18 05:57] LABS: CALCIUM 7.4 mg/dL (8.5-10.1); CREATININE 0.7 mg/dL (0.7-1.3); GFR 118.9; MAGNESIUM 1.7 mg/dL (1.8-2.4); POTASSIUM 3.1 mmol/L (3.5-5.1)
[2022-01-18] MEDS: PANTOPRAZOLE IV PUSH 40 MG VIAL. IVP SCH (06:31)
--- NOTE | 2022-01-18 07:45 | PDOC ---
Provider Note Date of Service: DATE: 01/18/22 TIME: 07:44 Provider Note IR NOTE Hematemesis. Acites. Cirrhosis. Likely portal HTN. Gastric Varix on endoscopy. Will order multiphase abdomen pelvis CT for further eval. Justifications for Admission Other Justification TEDDY VASQUEZ MD Jan 18, 2022 07:45
[2022-01-18] MEDS ORDERED: IOHEXOL 300 MG/ML 100ML VIAL. IV ONE (08:00)
[2022-01-18] MEDS ORDERED: CONTRAST GIVEN. MC PRN (08:15)
[2022-01-18] MEDS: SENNOSIDES/DOCUSATE 8.6/50MG TABLET. PO SCH ×2 (09:00→21:00)
[2022-01-18] MEDS: FOLIC ACID 1 MG TABLET. PO SCH (09:24)
[2022-01-18] MEDS: MULTIVITAMIN with MINERAL TABLET. PO SCH (09:24)
[2022-01-18] MEDS: THIAMINE 100 MG TABLET. PO SCH (09:24)
--- NOTE | 2022-01-18 09:30 | RAD ---
EXAMINATION: CT abdomen and pelvis with and without IV contrast. INDICATION:51 years, Male, Evaluate portal vein. History of liver cirrhosis. TECHNIQUE: Axial CT images of the abdomen and pelvis were obtained. Coronal and sagittal reformatted performed. COMPARISON: Ultrasound dated 01/15/2022. Exposure: One or more of the following individualized dose reduction techniques were utilized for thi s examination: 1. Automated exposure control 2. Adjustment of the mA and/or kV according to patient size 3. Use of iterative reconstruction technique. FINDINGS: LOWER CHEST: Bibasilar subsegmental atelectasis. ABDOMEN/PELVIS: Cirrhotic morphology of the liver with enlarged left and caudate lobes with surface nodularity. No ar terial enhancing lesion to suggest hepatocellular carcinoma. Calcified granuloma in the liver. Stigma ta of portal hypertension includes large amount of abdominopelvic ascites with diffuse mesenteric deja ma. Additional, cannulization of umbilical vein with portosystemic venous collaterals in the upper ab domen. Portal veins are patent with no filling defect to suggest thrombus. No splenomegaly. Multiple cholelithiasis. No biliary ductal dilation. Pancreas is unremarkable. No adrenal nodule. No hydroneph rosis or nephrolithiasis in either kidney. Small hiatal hernia. No bowel dilation. Wall thickening of the ascending colon. Normal caliber abdomi nal aorta, demonstrates mild atherosclerotic calcifications. Mesenteric arteries are patent. No lymph adenopathy in the abdomen or pelvis by size criteria. No pneumoperitoneum. Unremarkable urinary bladd er and prostate. MUSCULOSKELETAL STRUCTURES: No acute osseous process or suspicious lesion. Mild degenerative changes in the lower lumbar spine. D iffuse osseous anasarca. IMPRESSION: 1. Cirrhotic liver with stigmata of portal hypertension includes large abdominopelvic ascites with di ffuse mesenteric edema, and portosystemic venous collaterals. No arterial enhancing lesion to suggest hepatocellular carcinoma. 2. Patent portal veins with no filling defect to suggest thrombosis. 3. Wall thickening of the ascending colon, likely reflecting portal colopathy. 4. Multiple cholelithiasis. Electronically signed by: Sandro Gotti MD (01/18/2022 9:28 AM) [id number]
--- NOTE | 2022-01-18 11:14 | PDOC ---
[employer] PROGRESS NOTE Date of Service DOS: DATE: 01/18/22 TIME: 11:13 Chief Complaint Chief Complaint Assessment/Plan Hematemesis, alcohol abuse, ascites, cirrhosis status post EGD revealing gastric varices with red spot and hiatal hernia Advance diet as tolerated - 2-day history of bright red blood per rectum 1 day history hematemesis. Hemodynamically stable -Continue IV octreotide drip and PPI. -GI consultation -Given severity of alcohol abuse will start CIWA protocol -Can perform paracentesis over weekend at bedside if deemed necessary -IR evaluation for TIPS -Home meds as indicated -hold off dvt ppx for now History of Present Illness History of Present Illness 51-year-old male sent from [facility] today after he presented with some dark- colored stools on Tuesday of bright red blood hematemesis on . This has been ongoing ever since the start of symptoms. Did have an episode of h ematemesis this morning and his significant other encouraged him to present to the outside emergency room. While there are due to concerns for GI bleed he was transferred down here. Patient does report having a GI bleed in 2018 that was eventually found to be caused by a stomach ulcer. Was on some sort of proton pump inhibitor after that. He also does endorse ongoing dysphagia. Since he stopped taking his proton pump inhibitors. Does endorse having a hiatal hernia. When I evaluated patient he was resting in bed complaining of abdominal pain feeling very tight. 01/16/22 No acute events overnight. Patient seen examined bedside. Status post EGD showing varices. IR consulted for possible TIPS versus BRTTO. Will trend hemoglobin at this time. Hemoglobin today at 9.0 advance diet per GI. Abdominal pain is improved. No more hematemesis. No signs of withdrawal. Patient's chart, labs, images were reviewed and discussed with RN 01/17/2022 No acute events overnight. Patient seen examined bedside. No more hematemesis. Tolerating diet. Will DC Protonix drip and continue with IV Protonix twice daily. Pending IR evaluation. Hemoglobin trending downwards to 8.6. We will continue to observe. Patient's chart, labs, images were reviewed and discussed with RN 01/18/2022 No acute events overnight. Patient seen examined bedside. AF and VSS. Hemoglobin stable at 8.7. Multiphase CT of the liver done by interventional radiology. Pending further plan for possible tips procedure. Patient's chart, labs, images were reviewed and discussed with RN Vitals/I&O Vitals/I&O: Vital Signs Date Time Temp Pulse Resp B/P (MAP) Pulse Ox O2 Delivery O2 Flow Rate FiO2 01/18/22 10:32 96.9 83 18 137/96 (110) 98 Room Air 96.9 I & O 01/17/22 01/17/22 01/18/22 15:00 23:00 07:00 Intake Total 480 ml Output Total 176 ml Balance 304 ml Physical Exam General: Alert, Oriented X3, Cooperative Heart: Regular rate Lungs: Clear Abdomen: Normal bowel sounds Extremities: No clubbing Skin: No rashes Labs Labs: Laboratory Tests Test 01/18/22 04:20 White Blood Count 6.9 x10^3/uL (4.0-11.0) Red Blood Count 2.32 x10^6/uL (4.30-5.70) Hemoglobin 8.7 g/dL (13.0-17.5) Hematocrit 25.3 % (39.0-53.0) Mean Corpuscular Volume 109 fL (79-100) Mean Corpuscular Hemoglobin 38 pg (25-35) Mean Corpuscular Hemoglobin Concent 34 g/dL (31-37) Red Cell Distribution Width 13.6 % (11.5-14.5) Platelet Count 142 x10^3/uL (140-400) Neutrophils (%) (Auto) 70 % (31-73) Lymphocytes (%) (Auto) 18 % (24-48) Monocytes (%) (Auto) 9 % (0-9) Eosinophils (%) (Auto) 2 % (0-3) Basophils (%) (Auto) 1 % (0-3) Neutrophils # (Auto) 4.8 x10^3/uL (1.8-7.7) Lymphocytes # (Auto) 1.2 x10^3/uL (1.0-4.8) Monocytes # (Auto) 0.6 x10^3/uL (0.0-1.1) Eosinophils # (Auto) 0.2 x10^3/uL (0.0-0.7) Basophils # (Auto) 0.1 x10^3/uL (0.0-0.2) Sodium Level 139 mmol/L (136-145) Potassium Level 3.1 mmol/L (3.5-5.1) Chloride Level 107 mmol/L (98-107) Carbon Dioxide Level 24 mmol/L (21-32) Anion Gap 8 (6-14) Blood Urea Nitrogen 4 mg/dL (8-26) Creatinine 0.7 mg/dL (0.7-1.3) Estimated GFR (Cockcroft-Gault) 118.9 Glucose Level 105 mg/dL (70-99) Calcium Level 7.4 mg/dL (8.5-10.1) Phosphorus Level 3.0 mg/dL (2.6-4.7) Magnesium Level 1.7 mg/dL (1.8-2.4) Comment Review of Relevant I have reviewed the following items emily (where applicable) has been applied. Medications: Current Medications Medications (Trade) Dose Ordered Sig/Nadeen Route PRN Reason Start Time Stop Time Status Last Admin Dose Admin Pantoprazole Sodium (PROTONIX VIAL for IV PUSH) 40 mg BIDAC IVP 01/17/22 16:30 01/18/22 06:31 Iohexol (Omnipaque 300 Mg/ml) 75 ml 1X ONCE IV 01/18/22 08:00 01/18/22 08:02 DC 01/18/22 08:00 Justifications for Admission Other Justification DELMY LOMAS MD Jan 18, 2022 11:14
[2022-01-18] MEDS: MAGNESIUM SULFATE 2GM 50 ML IV ONE ×2 (12:05→14:18)
--- NOTE | 2022-01-18 12:55 | PDOC ---
Date of Service: DATE: 01/18/22 TIME: 12:49 Objective: Objective: No bleeding per nurse. Vital Signs: Vital Signs Date Time Temp Pulse Resp B/P (MAP) Pulse Ox O2 Delivery O2 Flow Rate FiO2 01/18/22 10:32 96.9 83 18 137/96 (110) 98 Room Air 96.9 Labs: Laboratory Tests Test 01/18/22 04:20 White Blood Count 6.9 x10^3/uL Red Blood Count 2.32 x10^6/uL Hemoglobin 8.7 g/dL Hematocrit 25.3 % Mean Corpuscular Volume 109 fL Mean Corpuscular Hemoglobin 38 pg Mean Corpuscular Hemoglobin Concent 34 g/dL Red Cell Distribution Width 13.6 % Platelet Count 142 x10^3/uL Neutrophils (%) (Auto) 70 % Lymphocytes (%) (Auto) 18 % Monocytes (%) (Auto) 9 % Eosinophils (%) (Auto) 2 % Basophils (%) (Auto) 1 % Neutrophils # (Auto) 4.8 x10^3/uL Lymphocytes # (Auto) 1.2 x10^3/uL Monocytes # (Auto) 0.6 x10^3/uL Eosinophils # (Auto) 0.2 x10^3/uL Basophils # (Auto) 0.1 x10^3/uL Sodium Level 139 mmol/L Potassium Level 3.1 mmol/L Chloride Level 107 mmol/L Carbon Dioxide Level 24 mmol/L Anion Gap 8 Blood Urea Nitrogen 4 mg/dL Creatinine 0.7 mg/dL Estimated GFR (Cockcroft-Gault) 118.9 Glucose Level 105 mg/dL Calcium Level 7.4 mg/dL Phosphorus Level 3.0 mg/dL Magnesium Level 1.7 mg/dL Imaging: EGD 01/15 E--No real varices; some small prominent veins but can flatten with air insufflation. Erosion distally from GERD. No apparent Malllory-Serra lesion. G--Small HH, but within what seemed to be gastric varix with a red spot. Not treatable by banding or injection here. Most of greater curve obscured by blood/clot. Distally normal lesser curve, antrum and pylorus. D--Normal to second portion; no blood here. IMP: GERD HH Gastric varix with stigmata of recent hemorrhage. Not endoscopically treatable here. REC: Continue PPI drip. Add octreotide. Would have IR see re: possiblity of TIPS or BRTTO. NPO save ice chips. Monitor hemoglobin, INR, etc. Transfuse prn. Abd US 01/15 IMPRESSION: 1. Ascites at the right upper quadrant abdomen. 2. Liver cirrhosis. 3. Gallbladder sludge and tiny gravel-type calculi. The gallbladder wall is mildly thickened measuring 4.4 mm, which can be commonly observed in the setting of ascites and liver disease. Inflammatory thickening from cholecystitis would also be a possibility. CT A/P 01/18 IMPRESSION: 1. Cirrhotic liver with stigmata of portal hypertension includes large abdominopelvic ascites with diffuse mesenteric edema, and portosystemic venous collaterals. No arterial enhancing lesion to suggest hepatocellular carcinoma. 2. Patent portal veins with no filling defect to suggest thrombosis. 3. Wall thickening of the ascending colon, likely reflecting portal colopathy. 4. Multiple cholelithiasis. PE: GEN: out of room A/P: Hematemesis, melena - resolved Macrocytic anemia - Hgb stable in 8s, normal B12, abnormal irons Gastric varix Cirrhosis, ascites, h/o alcohol misuse GERD, hiatal hernia, cholelithiasis -- IR ordered CT - results above. Out of room - nurse thinks maybe for paracentesis? - will follow-up later. Justicifation of Admission Dx: Justifications for Admission: Justification of Admission Dx: Yes LENARD HERNANDEZ Jan 18, 2022 12:55
--- NOTE | 2022-01-18 12:55 | NUR ---
SW following. Discussed with RN, pt from home, room air, GI soft diet, COVID-19 negative. GI following - pt having a paracentesis today. RN advised no SW needs at this time. SW will continue to follow.
[2022-01-18] MEDS ORDERED: ALBUMIN HUMAN 25% 100 ML IV ONE ×2 (14:00→15:00)
[2022-01-18] MEDS: POTASSIUM CHLORIDE 10MEQ 100 ML IV SCH ×8 (14:19→23:20)
--- NOTE | 2022-01-18 15:05 | RAD ---
Ultrasound-guided paracentesis. 01/18/2022 3:02 PM Indication: Abdominal discomfort. Ascites. Possible cirrhosis and portal hypertension. Discussion: The risks and benefits of the procedure including but not limited to bleeding, hypotensio n, and infection were discussed the patient. Informed consent was obtained. Ultrasound evaluation was performed demonstrating ascites, with the largest pocket and the right lower quadrant. The right low er quadrant was prepped and draped in sterile fashion. 1% lidocaine without epinephrine was administe red for local anesthesia. Under direct ultrasound guidance a 5 Spanish Yueh needle was advanced into t he peritoneal space. Serous fluid was aspirated. The catheter was connected to suction and approximat alesia 8.2 liters of fluid was removed. The catheter was then removed and manual pressure was held to a chieve hemostasis. A sterile dressing was applied. Impression: Ultrasound-guided paracentesis with removal of 8.2 L of ascites Electronically signed by: Neil Ames MD (01/18/2022 3:03 PM) [id number]
[2022-01-18 15:43] LABS: BF CLARITY CLEAR; BF COLOR YELLOW; BF SOURCE ASCITES
[2022-01-18 15:44] LABS: BF PMN % 4 %; BF RBC COUNT 80 /cmm (Not Established); BF WBC COUNT 109 /cmm (Not Established)
[2022-01-18 15:45] LABS: BF MON % 59 %; BF OTHER % 37 %
[2022-01-18] MEDS: cefTRIAXone IV Push 1 GM VIAL. IVP SCH (17:09)
[2022-01-18] MEDS: CEFDINIR 300 MG CAPSULE PO SCH (20:57)
[2022-01-18] MEDS: ZOLPIDEM 5 MG TABLET. PO PRN (20:57)
[2022-01-19 03:00] VITALS: BP 145/96
[2022-01-19 07:00] VITALS: BP 107/71
[2022-01-19] MEDS ORDERED: PANTOPRAZOLE 40 MG TABLET.DR. PO SCH (07:30)
--- NOTE | 2022-01-19 08:13 | PDOC ---
Provider Note Date of Service: DATE: 01/19/22 TIME: 08:07 Provider Note IR NOTE CT reviewed. Cirrhosis with ascited. small GE varices. Normal spleen. Paracentesis performed with 8 L fluid removed. Meld 13 We discussed TIPS for recurrent ascites as well as bleeding. Given single episode of variceal bleeding (assuming prior bleed was due to PUD as patient reports), without transfusion or instability, and this being first paracentesis, TIPS considered elective at this point. He wants to consider options. We also discussed need to follow up in regards to his chronic liver disease, ETOH cessation etc. If GI feels beneficial, he may need transjugular liver biopsy and measurement of portal pressures/gradient which can be done outpatient. Justifications for Admission Other Justification TEDDY VASQUEZ MD Jan 19, 2022 08:13
[2022-01-19] MEDS: SENNOSIDES/DOCUSATE 8.6/50MG TABLET. PO SCH (09:00)
[2022-01-19] MEDS: CEFDINIR 300 MG CAPSULE PO SCH (09:05)
[2022-01-19] MEDS: MULTIVITAMIN with MINERAL TABLET. PO SCH (09:05)
[2022-01-19] MEDS: THIAMINE 100 MG TABLET. PO SCH (09:06)
[2022-01-19] MEDS: FOLIC ACID 1 MG TABLET. PO SCH (09:06)
--- NOTE | 2022-01-19 09:22 | PDOC ---
Date of Service: DATE: 01/19/22 TIME: 09:15 Subjective: Subjective: Feels "like a million bucks." Wants to go home. No bleeding. Does not feel fluid is accumulating, but noted swelling in feet and hands yesterday. Says talked w/ IR, no plans for TIPS at this time. Objective: Objective: Reviewed chart: IR note 01/19/22 - IR NOTE CT reviewed. Cirrhosis with ascited. small GE varices. Normal spleen. Paracentesis performed with 8 L fluid removed. Meld 13 We discussed TIPS for recurrent ascites as well as bleeding. Given single episode of variceal bleeding (assuming prior bleed was due to PUD as patient reports), without transfusion or instability, and this being first paracentesis, TIPS considered elective at this point. He wants to consider options. We also discussed need to follow up in regards to his chronic liver disease, ETOH cessation etc. If GI feels beneficial, he may need transjugular liver biopsy and measurement of portal pressures/gradient which can be done outpatient. Vital Signs: Vital Signs Date Time Temp Pulse Resp B/P (MAP) Pulse Ox O2 Delivery O2 Flow Rate FiO2 01/19/22 08:00 Room Air 01/19/22 07:00 97.9 82 18 107/71 (83) 95 97.9 Labs: Laboratory Tests Test 01/18/22 13:20 Body Fluid Source Ascites Body Fluid Color Yellow Body Fluid Clarity Clear Body Fluid Nucleated Cells 109 /cmm Body Fluid Mononuclear WBCs (%) 59 % Body Fluid Polymorphonuclear Cells 4 % Body Fluid Total RBCs Counted 80 /cmm Body Fluid Other Cells (%) 37 % GRAM STAIN-AER SKYLAR Final PMNS (WBCS): NONE SEEN SQUAMOUS EPI CELL: NOT APPLICABLE NO ORGANISMS SEEN NO ORGANISMS SEEN * This is a corrected result. * A prior result that was reported as final has been changed. Imaging: Paracentesis 01/18 Impression: Ultrasound-guided paracentesis with removal of 8.2 L of ascites PE: GEN: NAD - talking on speakerphone with significant other LUNGS: CTAB HEART: RRR ABD: some distention, non-tender NEURO/PSYCH: A & O 3 A/P: Hematemesis, melena - no recurrence Macrocytic anemia - Hgb stable (checked yesterday) Alcoholic cirrhosis w/ gastric varix (cannot treat endoscopically here), ascites s/p large-volume paracentesis (prelim fluid studies ok) GERD, hiatal hernia, cholelithiasis -- No current plans for TIPS. DC per primary. Will need follow-up. Stop drinking. Justicifation of Admission Dx: Justifications for Admission: Justification of Admission Dx: Yes LENARD HERNANDEZ Jan 19, 2022 09:22
[2022-01-19 11:00] VITALS: BP 125/82
[2022-01-19] MEDS ORDERED: ZOLP10TA PO ×2 (11:20→11:31)
[2022-01-19] MEDS ORDERED: DOXA2TAB PO ×2 (11:20→11:31)
[2022-01-19] MEDS ORDERED: BYSTOLIC10 MG PO ×2 (11:20→11:31)
[2022-01-19] MEDS ORDERED: LEVO50TA5 PO ×2 (11:20→11:31)
[2022-01-19] MEDS ORDERED: LORA0.5T96 PO (11:31)
[2022-01-19] MEDS ORDERED: SPIR50TA4 PO (11:31)
[2022-01-19] MEDS ORDERED: FURO20TA3 PO (11:31)
[2022-01-19] MEDS ORDERED: CYAN1TAB19 PO (11:31)
[2022-01-19] MEDS ORDERED: THIA100T22 PO (11:31)
--- NOTE | 2022-01-19 11:33 | DISCH ---
DISCHARGE INSTRUCTIONS Condition on Discharge Condition on Discharge: Stable Activity After Discharge Activity Instructions for Disc: Activity as tolerated Lifting Instructions after Dis: No pulling or pushing Exercise Instruction after Dis: Walk 30 min, 5 x per week Driving Instructions after Dis: Do not drive today Weight Bearing Status after Di: Full weight bearing Diet after Discharge Diet after Discharge: GI Soft, Low Sodium 2 gm Follow-Up Follow up with: PCP within 2 weeks of discharge Follow Up With: Gastroenterology GAYLE DELMY LOMSA MD Jan 19, 2022 11:33
--- NOTE | 2022-01-19 11:36 | NUR ---
SW following. Discussed with RN, discharge order for home with self care. RN advised no SW needs.
--- NOTE | 2022-01-19 13:39 | NUR ---
Discharge Note: ARACELI BELLO BYRON Discharge instructions and discharge home medications reviewed with Patient and a copy given. All questions have been answered and understanding verbalized. The following instructions and handouts were given: follow up instructions, medication education Discontinued lines and drains: 20 right FA, tip intact. patient tolerated well. Patient discharged to home with self care via significant other.
[2022-01-20] MEDS ORDERED: THIAMINE 100 MG TABLET. PO SCH (09:00)
[2022-01-20] MEDS ORDERED: MULTIVITAMIN with MINERAL TABLET. PO SCH (09:00)
[2022-01-20] MEDS ORDERED: FOLIC ACID 1 MG TABLET. PO SCH (09:00)
--- NOTE | 2022-01-21 13:11 | PATHOLOGY ---
Note [facility] Accession Number: [id number] TESTS RESULT FLAG UNITS REF RANGE LAB Clinician Provided Cytology Information No. of containers..01 Other (Miscellaneous) Source: ASCITES DIAGNOSIS: 02 ASCITES NEGATIVE FOR MALIGNANT CELLS. FOCALLY REACTIVE MESOTHELIAL CELLS ARE PRESENT. THIS INTERPRETATION INCLUDES EVALUATION OF A CELL BLOCK. Signed out by: Angelo Chauhan MD, Pathologist NPI- [id number] Performed by: Kady Reese, Women'S Soccer Coach ([facility]) Gross description: 01 35ML, YELLOW, CLEAR /LCS 01/19/2022 1712 Local FLAG LEGEND: L-Low Normal,H-High Normal,LL-Alert Low,HH-Alert High <-Panic Low,>-Panic High,A-Abnormal,AA-Critical Abnormal Performed at: [facility] [address] [place] [address] Fabricio Regalaod MD, 02 [facility] [address] [place] [address] Angelo Chauhan MD, Specimen Comment: A courtesy copy of this report has been sent to [phone], [phone] Specimen Comment: [phone], Specimen Comment: Report sent to , DR HERNANDEZ / DR LOMAS Specimen Comment: A duplicate report has been generated due to demographic updates. Performed at: 01 [facility] [address], [place], [place] [id number] MD Fabricio Regalado MD Phone: [phone]
== END 2022-01-19 12:26 | disposition home or self-care (01) | DRG 300 ==
LOC: 5 NORTH 13:38
PROVIDERS: ADMIT Internal Medicine; ATTEND Internal Medicine
PROC: 0W9G3ZZ Drainage of Peritoneal Cavity, Percutaneous Approach (ICD-10-PCS; 2022-01-15)
PROC: 0DJ08ZZ Inspection of Upper Intestinal Tract, Via Natural or Artificial Opening Endoscopic (ICD-10-PCS; principal; 2022-01-15 15:43)
DX: I86.4 Gastric varices (principal); D62 Acute posthemorrhagic anemia; K92.0 Hematemesis; K62.5 Hemorrhage of anus and rectum; D53.9 Nutritional anemia, unspecified; F10.10 Alcohol abuse, uncomplicated; F17.210 Nicotine dependence, cigarettes, uncomplicated; I10 Essential (primary) hypertension; K21.9 Gastro-esophageal reflux disease without esophagitis; K44.9 Diaphragmatic hernia without obstruction or gangrene; K80.20 Calculus of gallbladder without cholecystitis without obstruction; Z88.5 Allergy status to narcotic agent; Z20.822 Contact with and (suspected) exposure to COVID-19; K70.31 Alcoholic cirrhosis of liver with ascites
CPT/HCPCS: 36415; 43235; 49083; 72193; 74170; 76705; 80048; 80053; 81001; 82140; 82607; 82945; 83540; 83550; 83605; 83615; 83690; 83735; 84100; 84157; 84443; 85025; 85027; 85610; 85730; 86705; 86709; 86803; 87075; 87340; 89050; 93306; C9113; J0696; J2060; J2354; J2405; J2704; J3411; J3475; J3480; J3490; J7030; P9046; Q9967; C8929; G0378

== ENCOUNTER → 2022-02-22 | Day surgery (SDC) | payer OTHER ==
[~2022-02-22] VITALS: Ht 182.9 cm; Wt 98.6 kg
[~2022-02-22] MED LIST: BYSTOLIC10 MG PO; CYAN1TAB19 PO; DOXA2TAB PO; FURO20TA3 PO; IV RINGERS,LACTATED 1000ML 1,000 ML IV SCH; LEVO50TA5 PO; LIDOCAINE 1% PF 2 ML VIAL. ID PRN; LORA0.5T96 PO; OMEP20TA91 PO; PROPOFOL 10 MG/ML (20ML) VIAL. IV ONE; SILD50TA PO; SPIR50TA4 PO; THIA100T22 PO; ZOLP10TA PO
[2022-02-22 13:03] VITALS: BP 118/72
--- NOTE | 2022-02-22 14:49 | PDOC4 ---
PROCEDURE Procedure EGD/colonoscopy Indication: prior gastric varix--status?/screening. Meds: per anesthesia Findings: E--Healed reflux distally. NO varices, G--HH with tiny varix within, much smaller than previously. D--Normal to second portion. ZHANNA--Normal --'Scope advanced to cecum. Prep adequate. Mucosa normal. No diverticula, polyps, etc. Small IH's on retroflex. Anastasiya. well. IMP: GERD Improvement in varix--decreased portal pressure off alcohol? IH's REC: continue current meds. F/u in 2 weeks. Colon 10 years. BRYNN HERNANDEZ MD Feb 22, 2022 14:49
[2022-02-22 15:15] VITALS: BP 115/75
== END | disposition home or self-care (01) ==
LOC: ENDOS 12:43
PROVIDERS: ATTEND Internal Medicine Gastroenterology
DX: K92.2 Gastrointestinal hemorrhage, unspecified (principal); K44.9 Diaphragmatic hernia without obstruction or gangrene; K21.00 Gastro-esophageal reflux disease with esophagitis, without bleeding; I86.4 Gastric varices; K64.0 First degree hemorrhoids; K70.31 Alcoholic cirrhosis of liver with ascites; K63.89 Other specified diseases of intestine; K31.89 Other diseases of stomach and duodenum; I10 Essential (primary) hypertension; E03.9 Hypothyroidism, unspecified; F17.210 Nicotine dependence, cigarettes, uncomplicated; Z79.899 Other long term (current) drug therapy; Z98.890 Other specified postprocedural states; Z88.5 Allergy status to narcotic agent
CPT/HCPCS: 43235; 45378; J2704